=== PATIENT | female | born 1965 | race Caucasian/White ===

== ENCOUNTER 2020-12-18 14:30 | Emergency (ER) | payer OTHER ==
[~2020-12-18 14:30] MED LIST: ANTIVERT 25MG T25 MG PO; IBUPROFEN800 MG PO; LODINE CAP 300300 MG PO; PENVEE K 500 M500 MG PO
[2020-12-18 15:26] LABS: HEMOGLOBIN 14.2 gm/dl (12.3-15.3); RED BLOOD COUNT 4.81 M/UL (4.00-5.10)
[2020-12-18 15:46] LABS: BUN/CREATININE RATIO 40 (0-10)
== END 2020-12-18 16:51 | disposition home or self-care (01) ==
LOC: ER1 14:30
PROVIDERS: Physician Assistant
DX: R07.89 Other chest pain (principal); Z90.49 Acquired absence of other specified parts of digestive tract; Z88.2 Allergy status to sulfonamides; Z88.5 Allergy status to narcotic agent
CPT/HCPCS: 71045; 80053; 82550; 82553; 83874; 84484; 85025; 93005; 99285

== ENCOUNTER → 2021-02-07 | Outpatient (CLI) | payer OTHER ==
[2021-02-07 12:45] LABS: RED BLOOD COUNT 4.69 M/UL (4.00-5.10); WHITE BLOOD COUNT 6.7 K/UL (4.5-11.0)
[2021-02-07 13:27] LABS: BUN/CREATININE RATIO 41 (0-10)
== END ==
LOC: LAB 12:04
PROVIDERS: Family Medicine
DX: E55.9 Vitamin D deficiency, unspecified (principal); R73.9 Hyperglycemia, unspecified; R07.9 Chest pain, unspecified; F41.9 Anxiety disorder, unspecified
CPT/HCPCS: 36415; 80053; 80061; 83036; 84443; 85027

== ENCOUNTER → 2021-03-08 | Outpatient (CLI) | payer OTHER | LOC: RAD 13:24 | DX: M25.552 Pain in left hip (principal) | CPT/HCPCS: 73502 ==

== ENCOUNTER → 2021-05-23 | Outpatient (CLI) | payer OTHER ==
[2021-05-23 13:38] LABS: BUN/CREATININE RATIO 30 (0-10)
[2021-05-24 07:12] LABS: CANCER ANTIGEN (CA) 125 10.1 U/mL (0.0-38.1); VITAMIN D, 25-HYDROXY 42.2 ng/mL (30.0-100.0)
[2021-05-26 12:09] LABS: QUANTIFERON MITOGEN VALUE >10.00 IU/mL (.); QUANTIFERON NIL VALUE 0.08 IU/mL (.); QUANTIFERON TB1 AG VALUE 0.14 IU/mL (.); QUANTIFERON TB2 AG VALUE 0.15 IU/mL (.); QUANTIFERON-TB GOLD PLUS Negative (Negative)
== END ==
LOC: LAB 11:54
PROVIDERS: Family Medicine
DX: Z11.1 Encounter for screening for respiratory tuberculosis (principal); Z12.73 Encounter for screening for malignant neoplasm of ovary; E55.9 Vitamin D deficiency, unspecified
CPT/HCPCS: 36415; 80048; 86304